=== PATIENT | female | born 1975 | race Caucasian/White ===

== ENCOUNTER 2017-02-03 11:13 | Emergency (ER) | payer BC, OTHER ==
[~2017-02-03] VITALS: Ht 154.9 cm; Wt 105.0 kg
[~2017-02-03 11:13] MED LIST: ASPI81TA3 OR; CLIN1CAP5 PO; VITAMIN B COMPLE1 OR
[2017-02-03 11:14] VITALS: BP 157/89
[2017-02-03] MEDS ORDERED: IPRATROPIUM 0.5MG/ALBUTEROL 2.5MG INH SOL UD 3ML (DUONEB)(J7620) NEB ONE (11:30)
--- NOTE | 2017-02-03 11:55 | REP ---
Chest two views HISTORY: Cough Comparison: 02/25/2012 The lungs are clear. The cardiac silhouette is enlarged. The pulmonary vasculature is normal in appearance. The bony structure is intact. IMPRESSION: Cardiomegaly. Signed by Charlie Black MD 02/03/2017 11:47 A
[2017-02-03] MEDS ORDERED: ALBU17IN2 INH (11:57)
[2017-02-03] MEDS ORDERED: TUSSSUS2 PO (11:57)
== END 2017-02-03 12:05 | disposition home or self-care (01) ==
LOC: M ED 11:33
DX: J06.9 Acute upper respiratory infection, unspecified (principal); J20.9 Acute bronchitis, unspecified; G35 Multiple sclerosis; I51.7 Cardiomegaly; Z91.030 Bee allergy status; Z91.040 Latex allergy status; Z88.1 Allergy status to other antibiotic agents

== ENCOUNTER → 2017-10-23 | Outpatient (CLI) | payer OTHER ==
[2017-10-23 09:08] LABS: HEMATOCRIT 45.9 % (36.0-47.0); HEMOGLOBIN 15.3 g/dl (12.0-16.0); MEAN CORPUSCULAR HEMOGLOBIN 29.4 pg (27.0-33.0); MEAN CORPUSCULAR HGB CONC 33.3 g/dl (32.0-36.5); MEAN CORPUSCULAR VOLUME 88.3 fl (80.0-96.0); PLATELET COUNT, AUTOMATED 316 10^3/uL (150-450); RED CELL DISTRIBUTION WIDTH 13.1 % (11.5-14.5); WHITE BLOOD COUNT 10.5 10^3/uL (4.0-10.0)
[2017-10-23 09:39] LABS: ALKALINE PHOSPHATASE 92 U/L (45-117); ALT/SGPT 38 U/L (12-78); ANION GAP 5 MEQ/L (8-16); AST/SGOT 23 U/L (7-37); BLOOD UREA NITROGEN 20 MG/DL (7-18); CALCIUM LEVEL 8.8 MG/DL (8.5-10.1); CARBON DIOXIDE LEVEL 30 MEQ/L (21-32); CHLORIDE LEVEL 107 MEQ/L (98-107); CREATININE FOR GFR 0.76 MG/DL (0.55-1.30); GLOMERULAR FILTRATION RATE > 60.0 (>58); GLUCOSE, FASTING 106 MG/DL (70-100); POTASSIUM SERUM 4.9 MEQ/L (3.5-5.1); SODIUM LEVEL 142 MEQ/L (136-145)
[2017-10-23 09:40] LABS: ALBUMIN 3.8 GM/DL (3.2-5.2); ALBUMIN/GLOBULIN RATIO 0.95 (1.00-1.93); BILIRUBIN,TOTAL 0.4 MG/DL (0.2-1.0); CHOLESTEROL LEVEL 227 MG/DL (<200); CHOLESTEROL RISK RATIO 5.279 (<5); HDL CHOLESTEROL 43 MG/DL (>40); LDL CHOLESTEROL 143.2 MG/DL (<100); NON-HDL-C 184 MG/DL; TOTAL PROTEIN 7.8 GM/DL (6.4-8.2); TRIGLYCERIDES LEVEL 204 MG/DL (<150)
== END ==
LOC: M LAB 08:40
DX: E66.01 Morbid (severe) obesity due to excess calories (principal); Z68.41 Body mass index [BMI] 40.0-44.9, adult
CPT/HCPCS: 80053

== ENCOUNTER → 2017-10-27 | Outpatient (CLI) | payer OTHER | LOC: M RAD 11:03 | DX: Z12.4 Encounter for screening for malignant neoplasm of cervix (principal); Z12.31 Encounter for screening mammogram for malignant neoplasm of breast ==

== ENCOUNTER → 2017-11-20 | Outpatient (CLI) | payer OTHER | LOC: M RAD 12:35 | DX: M47.812 Spondylosis without myelopathy or radiculopathy, cervical region (principal); M50.221 Other cervical disc displacement at C4-C5 level | CPT/HCPCS: 70551 ==

== ENCOUNTER → 2017-11-26 | Outpatient (CLI) | payer OTHER | LOC: M RAD 09:46 | DX: G35 Multiple sclerosis (principal); M51.26 Other intervertebral disc displacement, lumbar region; M51.27 Other intervertebral disc displacement, lumbosacral region; M51.24 Other intervertebral disc displacement, thoracic region ==

== ENCOUNTER → 2019-10-21 | Outpatient (CLI) | payer OTHER ==
[~2019-10-21] MED LIST changes: +ALBU17IN2 INH; +CLIN150C14 PO; -CLIN1CAP5 PO; +TUSS1SUS2 PO
[2019-10-21 22:43] LABS: HEMOGLOBIN A1c 6.2 %
[2019-10-21 22:52] LABS: ALT/SGPT 77 U/L (12-78); BILIRUBIN,TOTAL 0.4 MG/DL (0.2-1.0); BLOOD UREA NITROGEN 24 MG/DL (7-18); CALCIUM LEVEL 9.2 MG/DL (8.5-10.1); CARBON DIOXIDE LEVEL 29 MEQ/L (21-32); CHLORIDE LEVEL 106 MEQ/L (98-107); CHOLESTEROL LEVEL 239 MG/DL (<200); CHOLESTEROL RISK RATIO 6.638 (<5); CREATININE FOR GFR 0.82 MG/DL (0.55-1.30); GLOMERULAR FILTRATION RATE > 60.0 (>58); GLUCOSE, FASTING 114 MG/DL (70-100); HDL CHOLESTEROL 36 MG/DL (>40); LDL CHOLESTEROL 161 MG/DL (<100); MAGNESIUM LEVEL 2.2 MG/DL (1.8-2.4); NON-HDL-C 203 MG/DL; POTASSIUM SERUM 4.2 MEQ/L (3.5-5.1); SODIUM LEVEL 141 MEQ/L (136-145); TOTAL PROTEIN 7.8 GM/DL (6.4-8.2); TRIGLYCERIDES LEVEL 211 MG/DL (<150)
[2019-10-23 09:44] LABS: TOTAL 25(OH) VITAMIN D 41.8 NG/ML (30.0-100.0)
== END ==
LOC: M LAB 21:47
PROVIDERS: ATTEND Nurse Practitioner Family
DX: I49.9 Cardiac arrhythmia, unspecified (principal); R73.01 Impaired fasting glucose; E66.01 Morbid (severe) obesity due to excess calories

== ENCOUNTER → 2020-07-12 | Outpatient (CLI) | payer OTHER ==
--- NOTE | 2020-07-12 12:05 | REPVR ---
PROCEDURE INFORMATION: Exam: MR Head Without Contrast Exam date and time: 07/12/2020 11:53 AM Age: 45 years old Clinical indication: Condition or disease; Multiple sclerosis TECHNIQUE: Imaging protocol: MR of the head without contrast. 3D rendering (Not supervised by radiologist): MIP and/or 3D reconstructed images were created by the technologist. COMPARISON: MRI-Brain without Contrast 11/20/2017 1:04 PM FINDINGS: Brain: There is no extra-axial collection or intra-axial mass. There are foci of increased T2/FLAIR hyperintensity within the periventricular and subcortical white matter, compatible with submitted history of demyelinating disease. Plaque burden appears unchanged in the interval. Cerebral ventricles: Normal. No ventriculomegaly. Bones/joints: Unremarkable. Paranasal sinuses: Normal as visualized. No acute sinusitis. Mastoid air cells: Normal as visualized. No mastoid effusion. Orbits: Unremarkable. Soft tissues: Unremarkable. IMPRESSION: Findings compatible with submitted history of demyelinating disease. Stable plaque burden. Electronically signed by: Marti Morales On 07/12/2020 12:05:00 PM
== END ==
LOC: M RAD 11:12
PROVIDERS: ATTEND Nurse Practitioner Family
DX: G35 Multiple sclerosis (principal)

== ENCOUNTER → 2020-07-26 | Outpatient (CLI) | payer OTHER ==
--- NOTE | 2020-07-26 20:57 | REPVR ---
PROCEDURE INFORMATION: Exam: MR Lumbar Spine Without Contrast. Exam date and time: 07/26/2020 6:26 PM Age: 45 years old Clinical indication: Condition or disease; multiple sclerosis TECHNIQUE: Imaging protocol: Multiplanar magnetic resonance images of the lumbar spine without intravenous contrast. COMPARISON: MRI-Spine, L.S. without con 11/26/2017 10:45 AM FINDINGS: Vertebrae: There are 5 non-rib bearing lumbar type vertebral bodies. The alignment of the lumbar spine is within normal limits. There is no fracture, pars defect, or subluxation. The vertebral body heights are maintained. Spinal epidural space: No abnormal epidural fluid collection. Spinal cord: The conus medullaris is normal and terminates at the T12-L1 level. T12-L1: The disc height is preserved. No disc herniation, spinal canal stenosis, or neural foraminal stenosis is noted. The facet joints are unremarkable. L1-L2: The disc height is preserved. No disc herniation, spinal canal stenosis, lateral recess stenosis, or neural foraminal stenosis is noted. The facet joints are unremarkable. There are endplate spurs projecting anteriorly. L2-L3: The disc height is preserved. No disc herniation, spinal canal stenosis, or neural foraminal stenosis is noted. There are endplate spurs projecting anteriorly and mild hypertrophy of the facet joints. These findings are similar in appearance compared to the prior MRI lumbar spine on 11/26/2017. L3-L4: There is mild loss of disc height, disc desiccation, a mild concentric bulge, endplate spurs projecting anteriorly, and mild hypertrophy of the facet joints. No spinal canal stenosis, lateral recess stenosis, or neural foraminal stenosis is noted. These findings are similar in appearance compared to the prior MRI lumbar spine on 11/26/2017. L4-L5: There is moderate loss of disc height, disc desiccation, vacuum phenomenon in the intervertebral disc, mild endplate edema on both sides of the right side of the disc space, a broad-based posterior protrusion that is eccentric to the right and contacts the right L4 nerve root, endplate spurs projecting anteriorly, and mild osteoarthritis of the facet joints. These findings are similar in appearance compared to the prior MRI lumbar spine on 11/26/2017. L5-S1: The disc height is preserved. There is disc desiccation, a broad-based posterior protrusion, fissuring of the posterior central portion of the annulus fibrosus, and mild hypertrophy of the facet joints. No spinal canal stenosis, lateral recess stenosis, or neural foraminal stenosis is noted. These findings are similar in appearance compared to the prior MRI lumbar spine on 11/26/2017. Soft tissues: No evidence for ligamentous sprain or muscular strain. No paraspinal soft tissue fluid collection. There is nonspecific edema in the subcutaneous tissues posteriorly along the midline of the lumbar spine. IMPRESSION: 1. L3-L4: Mild loss of disc height, disc desiccation, a mild concentric bulge, endplate spurs projecting anteriorly, and mild hypertrophy of the facet joints. 2. L4-L5: Moderate loss of disc height, disc desiccation, vacuum phenomenon in the intervertebral disc, mild endplate edema on both sides of the right side of the disc space, a broad-based posterior protrusion that is eccentric to the right and contacts the right L4 nerve root, endplate spurs projecting anteriorly, and mild osteoarthritis of the facet joints. 3. L5-S1: Disc desiccation, a broad-based posterior protrusion, fissuring of the posterior central portion of the annulus fibrosus, and mild hypertrophy of the facet joints. Electronically signed by: Santosh Kaufman On 07/26/2020 20:57:46 PM
--- NOTE | 2020-07-26 20:58 | REPVR ---
PROCEDURE INFORMATION: Exam: MR Cervical Spine Without Contrast Exam date and time: 07/26/2020 6:26 PM Age: 45 years old Clinical indication: Condition or disease; multiple sclerosis TECHNIQUE: Imaging protocol: Multiplanar magnetic resonance images of the cervical spine without contrast. COMPARISON: MRI-Spine,Cervical without con 11/20/2017 1:25 PM FINDINGS: Vertebrae: There is straightening of the normal cervical lordosis. No fracture or subluxation is noted. The vertebral body heights are preserved. Spinal cord: There are T2 hyperintense lesions in the periphery of the spinal cord of the C3-C4 and C4-C5 levels, which are stable compared to the prior MRI cervical spine on 11/20/2017. There has been development of T2 hyperintense lesions in the periphery of the spinal cord at the C2, C5-C6, and T2 levels since the prior MRI cervical spine on 11/20/2017. No cord compression. Spinal epidural space: There is no abnormal epidural fluid collection. C2-C3: The disc height is preserved. There is disc desiccation. No disc herniation, spinal canal stenosis, or neural foraminal stenosis is noted. The facet joints are unremarkable. C3-C4: The disc height is preserved. There is disc desiccation and fissuring of the posterior central portion of the annulus fibrosus. No disc herniation, spinal canal stenosis, or neural foraminal stenosis is noted. The facet joints are unremarkable. The small central disc protrusion noted at this level in the prior MRI on 11/20/2017 has resolved. C4-C5: The disc height is preserved. There is disc desiccation, a right paracentral protrusion, and right uncovertebral hypertrophy. There is mild spinal canal stenosis. No significant neural foraminal stenosis is noted. The facet joints are unremarkable. C5-C6: The disc height is preserved. There is disc desiccation, endplate edema on both sides of the disc space, a minimal posterior bulge, and endplate spurs projecting anteriorly. No spinal canal or neural foraminal stenosis is noted. The facet joints are unremarkable. C6-C7: The disc height is preserved. There is disc desiccation, endplate edema on both sides of the disc space, and endplate spurs projecting anteriorly. No disc herniation, spinal canal stenosis, or neural foraminal stenosis is noted. The facet joints are unremarkable. C7-T1: The disc height is preserved. No disc herniation, spinal canal stenosis, or neural foraminal stenosis is noted. The facet joints are unremarkable. Thyroid: There is a 15 mm nodule in the midpole of the left lobe of the thyroid gland, which is stable compared to the prior MRI cervical spine on 11/20/2017. Vertebral arteries: Expected flow voids in the vertebral arteries. Soft tissues: Unremarkable. No ligamentous sprain or muscular strain. No paraspinal soft tissue fluid collection. IMPRESSION: 1. Development of demyelinating plaques in the spinal cord at the C2, C5-C6, and T2 levels since the prior MRI cervical spine on 11/20/2017. 2. Stable demyelinating plaques at the C3-C4 and C4-C5 levels compared to the prior MRI cervical spine on 11/20/2017. 3. 15 mm nodule in the midpole of the left lobe of the thyroid gland, which is stable compared to the prior MRI cervical spine on 11/20/2017. See management guidelines below. COMMENTS: Consistent with the [employer]'s Incidental Findings Committee white paper (J Am Jeff Radiol 2015): In patients aged 35 years and older with an incidental thyroid nodule equal to or greater than 1.[address], MRI or extrathyroidal US, further evaluation with dedicated thyroid US is recommended for patients with normal life expectancy and without comorbidities. For smaller nodules without suspicious features, no further evaluation or follow up is recommended. Electronically signed by: Santosh Kaufman On 07/26/2020 20:58:59 PM
--- NOTE | 2020-07-26 20:58 | REPVR ---
PROCEDURE INFORMATION: Exam: MR Thoracic Spine Without Contrast Exam date and time: 07/26/2020 6:26 PM Age: 45 years old Clinical indication: Condition or disease; multiple sclerosis TECHNIQUE: Imaging protocol: Multiplanar magnetic resonance images of the thoracic spine without intravenous contrast. COMPARISON: MRI-Spine,Thoracic without con 11/26/2017 10:09 AM FINDINGS: Vertebrae: The alignment of the thoracic spine is within normal limits. There is no fracture or subluxation. Incidental note is made of an intraosseous hemangioma in the T11 vertebral body that is unchanged compared to the prior MRI thoracic spine on 11/26/2017. Spinal epidural space: There is no abnormal epidural fluid collection. Spinal cord: There is a T2 hyperintense lesion in the periphery of the spinal cord at the T2 level of that has developed since the prior MRI thoracic spine on 11/26/2017 and compatible with a demyelinating plaque. No other lesions are noted in the thoracic spinal cord. No cord compression. T1-T2: The disc height is preserved. No disc herniation, spinal canal stenosis, or neural foraminal stenosis is noted. The facet joints are unremarkable. T2-T3: The disc height is preserved. No disc herniation, spinal canal stenosis, or neural foraminal stenosis is noted. The facet joints are unremarkable. T3-T4: The disc height is preserved. No disc herniation, spinal canal stenosis, or neural foraminal stenosis is noted. There are endplate spurs projecting anteriorly and mild osteoarthritis of the right facet joint. T4-T5: The disc height is preserved. No disc herniation, spinal canal stenosis, or neural foraminal stenosis is noted. There are endplate spurs projecting anteriorly. There is mild osteoarthritis of the right facet joint. T5-T6: The disc height is preserved. There is a small central protrusion that is similar in appearance compared to the prior MRI thoracic spine on 11/26/2017. No spinal canal stenosis or neural foraminal stenosis is noted. There are endplate spurs projecting anteriorly. There is mild osteoarthritis of the right facet joint. T6-T7: The disc height is preserved. No disc herniation, spinal canal stenosis, or neural foraminal stenosis is noted. There is mild osteoarthritis of the facet joints. T7-T8: The disc height is preserved. No disc herniation, spinal canal stenosis, or neural foraminal stenosis is noted. There are endplate spurs projecting anteriorly. The facet joints are unremarkable. T8-T9: The disc height is preserved. No disc herniation, spinal canal stenosis, or neural foraminal stenosis is noted. There are endplate spurs projecting anteriorly. The facet joints are unremarkable. T9-T10: The disc height is preserved. No disc herniation, spinal canal stenosis, or neural foraminal stenosis is noted. There are endplate spurs projecting anteriorly. The facet joints are unremarkable. T10-T11: The disc height is preserved. No disc herniation, spinal canal stenosis, or neural foraminal stenosis is noted. There are endplate spurs projecting anteriorly. The facet joints are unremarkable. T11-T12: The disc height is preserved. No disc herniation, spinal canal stenosis, or neural foraminal stenosis is noted. There are endplate spurs projecting anteriorly. The facet joints are unremarkable. T12-L1: The disc height is preserved. No disc herniation, spinal canal stenosis, or neural foraminal stenosis is noted. The facet joints are unremarkable. Soft tissues: Unremarkable. No ligamentous sprain or muscular strain. No paraspinal soft tissue fluid collection. IMPRESSION: Demyelinating plaque in the spinal cord at the T2 level that has developed since the prior MRI thoracic spine on 11/26/2017. Electronically signed by: Santosh Kaufman On 07/26/2020 20:59:10 PM
== END ==
LOC: M RAD 16:57
PROVIDERS: ATTEND Nurse Practitioner Family
DX: G35 Multiple sclerosis (principal); M51.36 Other intervertebral disc degeneration, lumbar region; M47.814 Spondylosis without myelopathy or radiculopathy, thoracic region; E04.1 Nontoxic single thyroid nodule

== ENCOUNTER → 2021-03-25 | Outpatient (REF) ==
[~2021-03-25] MED LIST changes: -CLIN150C14 PO; +CLIN150C17 PO
== END ==
LOC: M EMP 10:07
PROVIDERS: ATTEND Family Medicine
DX: Z20.828 Contact with and (suspected) exposure to other viral communicable diseases (principal); Z11.59 Encounter for screening for other viral diseases

== ENCOUNTER → 2021-07-28 | Outpatient (REF) ==
[2021-07-28 15:54] LABS: RSV AMPLIFICATION NEGATIVE (NEGATIVE)
== END ==
LOC: M LABSMTC 10:03
PROVIDERS: ATTEND Family Medicine
DX: Z20.822 Contact with and (suspected) exposure to COVID-19 (principal)

== ENCOUNTER → 2021-11-18 | Outpatient (CLI) | payer BC ==
[2021-11-18 11:31] LABS: BASO # 0.1 10^3/uL (0.0-0.2); BASO % 0.6 % (0.0-1.0); EOS # 0.2 10^3/uL (0.0-0.5); EOS % 2.2 % (0.0-3.0); HEMATOCRIT 45.4 % (36.0-47.0); HEMOGLOBIN 15.1 g/dl (12.0-15.5); LYMPH # 4.4 10^3/uL (1.5-5.0); LYMPH % 40.4 % (24.0-44.0); MEAN CORPUSCULAR HEMOGLOBIN 29.4 pg (27.0-33.0); MEAN CORPUSCULAR HGB CONC 33.3 g/dl (32.0-36.5); MEAN CORPUSCULAR VOLUME 88.3 fl (80.0-96.0); MONO # 0.9 10^3/uL (0.0-0.8); MONO % 7.7 % (2.0-8.0); NEUTROPHILS # 5.4 10^3/uL (1.5-8.5); NEUTROPHILS % 48.8 % (36.0-66.0); PLATELET COUNT, AUTOMATED 251 10^3/uL (150-450); RED BLOOD COUNT 5.14 10^6/uL (4.00-5.40)
[2021-11-18 12:00] LABS: ALBUMIN 3.6 GM/DL (3.2-5.2); ALT/SGPT 161 U/L (12-78); BILIRUBIN,TOTAL 0.4 MG/DL (0.2-1.0); BLOOD UREA NITROGEN 21 MG/DL (7-18); CALCIUM LEVEL 9.4 MG/DL (8.5-10.1); CARBON DIOXIDE LEVEL 31 MEQ/L (21-32); CHLORIDE LEVEL 104 MEQ/L (98-107); CHOLESTEROL LEVEL 248 MG/DL (<200); CHOLESTEROL RISK RATIO 5.904 (<5); CREATININE FOR GFR 0.73 MG/DL (0.55-1.30); GLOMERULAR FILTRATION RATE > 60.0 (>58); GLUCOSE, FASTING 158 MG/DL (70-100); HDL CHOLESTEROL 42 MG/DL (>40); LDL CHOLESTEROL 165 MG/DL (<100); MAGNESIUM LEVEL 2.1 MG/DL (1.8-2.4); NON-HDL-C 206 MG/DL; POTASSIUM SERUM 4.3 MEQ/L (3.5-5.1); SODIUM LEVEL 139 MEQ/L (136-145); TOTAL PROTEIN 7.6 GM/DL (6.4-8.2); TRIGLYCERIDES LEVEL 206 MG/DL (<150)
[2021-11-18 12:06] LABS: HEMOGLOBIN A1c 7.8 %
== END ==
LOC: M LAB 10:23
PROVIDERS: ATTEND Nurse Practitioner Family
DX: R73.01 Impaired fasting glucose (principal); Z68.41 Body mass index [BMI] 40.0-44.9, adult; R03.0 Elevated blood-pressure reading, without diagnosis of hypertension; L68.0 Hirsutism

== ENCOUNTER → 2022-07-01 | Outpatient (CLI) | payer BC ==
[2022-07-01 09:11] LABS: BASO % 0.4 % (0.0-1.0); EOS # 0.2 10^3/uL (0.0-0.5); EOS % 1.7 % (0.0-3.0); HEMATOCRIT 47.4 % (36.0-47.0); HEMOGLOBIN 15.6 g/dl (12.0-15.5); LYMPH # 4.5 10^3/uL (1.5-5.0); LYMPH % 41.4 % (24.0-44.0); MEAN CORPUSCULAR HEMOGLOBIN 29.3 pg (27.0-33.0); MEAN CORPUSCULAR HGB CONC 32.9 g/dl (32.0-36.5); MEAN CORPUSCULAR VOLUME 89.1 fl (80.0-96.0); MONO # 0.7 10^3/uL (0.0-0.8); MONO % 6.6 % (2.0-8.0); NEUTROPHILS # 5.4 10^3/uL (1.5-8.5); NEUTROPHILS % 49.6 % (36.0-66.0); PLATELET COUNT, AUTOMATED 261 10^3/uL (150-450); RED BLOOD COUNT 5.32 10^6/uL (4.00-5.40); WHITE BLOOD COUNT 10.8 10^3/uL (4.0-10.0)
[2022-07-01 09:55] LABS: ALBUMIN 3.5 GM/DL (3.2-5.2); ALT/SGPT 115 U/L (12-78); BILIRUBIN,TOTAL 0.6 MG/DL (0.2-1.0); BLOOD UREA NITROGEN 14 MG/DL (7-18); CALCIUM LEVEL 8.3 MG/DL (8.5-10.1); CARBON DIOXIDE LEVEL 28 MEQ/L (21-32); CHLORIDE LEVEL 104 MEQ/L (98-107); CHOLESTEROL LEVEL 241 MG/DL (<200); CHOLESTEROL RISK RATIO 6.342 (<5); GLOMERULAR FILTRATION RATE > 60.0 (>58); GLUCOSE, FASTING 264 MG/DL (70-100); HDL CHOLESTEROL 38 MG/DL (>40); LDL CHOLESTEROL 170 MG/DL (<100); MAGNESIUM LEVEL 2.1 MG/DL (1.8-2.4); NON-HDL-C 203 MG/DL; POTASSIUM SERUM 3.8 MEQ/L (3.5-5.1); SODIUM LEVEL 139 MEQ/L (136-145); TOTAL PROTEIN 7.3 GM/DL (6.4-8.2); TRIGLYCERIDES LEVEL 166 MG/DL (<150)
[2022-07-01 10:17] LABS: HEMOGLOBIN A1c 10.4 %
[2022-07-01 11:16] LABS: TOTAL 25(OH) VITAMIN D 33.4 NG/ML (30.0-100.0)
[2022-07-01 11:17] LABS: VITAMIN B12 LEVEL 451 PG/ML (247-911)
[2022-07-02 08:09] LABS: LDL DIRECT 183 mg/dL (0-99)
[2022-07-03 11:12] LABS: CA 125 9.5 U/ML (<30.2)
== END ==
LOC: M LAB 08:13
PROVIDERS: ATTEND Nurse Practitioner Family
DX: M54.31 Sciatica, right side (principal); M54.32 Sciatica, left side; G35 Multiple sclerosis; R53.83 Other fatigue; Z51.81 Encounter for therapeutic drug level monitoring; I10 Essential (primary) hypertension; R73.01 Impaired fasting glucose; E55.9 Vitamin D deficiency, unspecified; N80.9 Endometriosis, unspecified

== ENCOUNTER → 2022-07-03 | Outpatient (CLI) | payer BC | LOC: M WHC 07:38 | PROVIDERS: ATTEND Nurse Practitioner Family | DX: Z12.31 Encounter for screening mammogram for malignant neoplasm of breast (principal) ==

== ENCOUNTER → 2022-07-27 | Outpatient (CLI) | payer BC | LOC: M PLAIMG 06:52 | PROVIDERS: ATTEND Nurse Practitioner Family | DX: G35 Multiple sclerosis (principal) ==

== ENCOUNTER → 2024-08-08 | Outpatient (REF) | payer BC ==
[2024-08-09 13:56] LABS: CREATININE, URINE 74.9 MG/DL; MALB URINE SIEMENS < 3.0 MG/L
[2024-08-09 14:08] LABS: BASO # 0.1 10^3/uL (0.0-0.2); BASO % 0.7 % (0.0-1.0); EOS # 0.2 10^3/uL (0.0-0.5); EOS % 1.7 % (0.0-3.0); HEMATOCRIT 49.4 % (36.0-47.0); HEMOGLOBIN 15.6 g/dl (12.0-15.5); LYMPH # 4.1 10^3/uL (1.5-5.0); LYMPH % 38.6 % (24.0-44.0); MEAN CORPUSCULAR HEMOGLOBIN 29.3 pg (27.0-33.0); MEAN CORPUSCULAR HGB CONC 31.6 g/dl (32.0-36.5); MEAN CORPUSCULAR VOLUME 92.7 fl (80.0-96.0); MONO # 0.7 10^3/uL (0.0-0.8); MONO % 6.7 % (2.0-8.0); NEUTROPHILS # 5.6 10^3/uL (1.5-8.5); NEUTROPHILS % 52.1 % (36.0-66.0); PLATELET COUNT, AUTOMATED 335 10^3/uL (150-450); RED BLOOD COUNT 5.33 10^6/uL (4.00-5.40); WHITE BLOOD COUNT 10.6 10^3/uL (4.0-10.0)
[2024-08-09 14:40] LABS: HEMOGLOBIN A1c 7.6 % (4.0-6.0)
[2024-08-09 14:42] LABS: ALKALINE PHOSPHATASE 127 U/L (35-104); ALT/SGPT 62 U/L (7.0-40); AST/SGOT 37 U/L (<34); BILIRUBIN,TOTAL 0.3 MG/DL (0.3-1.2); BLOOD UREA NITROGEN 16 MG/DL (9-23); CALCIUM LEVEL 9.5 MG/DL (8.5-10.1); CARBON DIOXIDE LEVEL 29 MMOL/L (20-31); CHLORIDE LEVEL 101 MMOL/L (98-107); CHOLESTEROL LEVEL 195 MG/DL (<200); CHOLESTEROL RISK RATIO 4.21 (<5); CREATININE FOR GFR 0.54 MG/DL (0.55-1.30); GLOMERULAR FILTRATION RATE > 60.0 (>58); GLUCOSE, FASTING 136 MG/DL (60-100); HDL CHOLESTEROL 46.3 MG/DL (>40); LDL CHOLESTEROL 109.3 MG/DL (<100); MAGNESIUM LEVEL 2.2 MG/DL (1.8-2.4); NON-HDL-C 148.7 MG/DL; POTASSIUM SERUM 4.4 MMOL/L (3.5-5.1); SODIUM LEVEL 141 MMOL/L (136-145); TOTAL PROTEIN 7.9 G/DL (5.7-8.2); TRIGLYCERIDES LEVEL 197 MG/DL (<150)
[2024-08-09 14:43] LABS: THYROID STIMULATING HORMONE 1.747 uIU/ML (0.55-4.78)
[2024-08-09 14:44] LABS: VITAMIN B12 LEVEL 1314 PG/ML (211-911)
== END ==
LOC: M LAB REF 13:11
PROVIDERS: ATTEND Nurse Practitioner Family
DX: E11.9 Type 2 diabetes mellitus without complications (principal); R00.8 Other abnormalities of heart beat; R53.83 Other fatigue; Z11.9 Encounter for screening for infectious and parasitic diseases, unspecified; E66.3 Overweight